=== PATIENT | male | born 1960 | race Caucasian/White ===

== ENCOUNTER 2018-10-12 05:55 | Emergency (ER) | payer OTHER, MEDICAID ==
[2018-10-12 05:56] VITALS: BMI 28.5
[2018-10-12] MEDS ORDERED: Sodium Chloride 0.9% 1,000 ML IV STA (07:16)
--- NOTE | 2018-10-12 07:25 | ED PDOC ---
HPI: Influenza Time Seen by Provider: 10/12/18 07:07 Chief Complaint: Flu-like Symptoms Chief Complaint (Provider): Flu-like Symptoms History Per: Patient Exam Limitations: no limitations Onset/Duration Of Symptoms: Days (x3) Additional complaint(s):: 58 year old male presents to ED with complaints of flu-like symptoms including subjective fever, chills, generalized bodyaches, sore throat, dry cough, and headache for 3 days. Patient has been taking Tylenol with minimal relief. Last dose was at 0400 earlier today. Of note, patient has Hx of +HIV with undetectable viral load and unknown CD4 count. PCP: none provided Past Medical History Reviewed: Historical Data, Nursing Documentation, Vital Signs Vital Signs: Last Vital Signs Temp 99.3 F 10/12/18 06:22 Pulse 104 H 10/12/18 06:22 Resp 18 10/12/18 06:22 BP 154/83 H 10/12/18 06:22 Pulse Ox 97 10/12/18 06:22 - Medical History PMH: Anxiety, HIV, HTN, Hypercholesterolemia Denies: Chronic Kidney Disease - Family History Family History: States: Unknown Family Hx - Social History Current smoker - smoking cessation education provided: Yes Alcohol: Occasional Drugs: Denies - Home Medications Home Medications: Ambulatory Orders Medication Instructions Recorded Atorvastatin [Lipitor] 10 mg PO DAILY 04/26/14 Clonazepam [Klonopin] 2 mg PO HS 04/26/14 Darunavir [Prezista] 800 mg PO DAILY 04/26/14 Dolutegravir Sodium [Tivicay] 50 mg PO DAILY 04/26/14 Enalapril Maleate [Vasotec] 10 mg PO DAILY 04/26/14 [id number] Ethyl Esters [Lovaza] 2 gm PO BID 04/26/14 Ritonavir [Norvir] 100 mg PO DAILY 04/26/14 buPROPion SR [Wellbutrin SR 150 MG] 150 mg PO BID 04/26/14 hydroCHLOROthiazide [Microzide] 12.5 mg PO DAILY 04/26/14 Naproxen [Naprosyn] 500 mg PO BID PRN #15 tablet 10/12/18 Oseltamivir Phosphate [Tamiflu] 75 mg PO BID #9 capsule 10/12/18 - Allergies Allergies/Adverse Reactions: Allergies Allergy/AdvReac Type Severity Reaction Status Date / Time No Known Allergies Allergy Verified 04/26/14 07:56 Review of Systems ROS Statement: Except As Marked, All Systems Reviewed And Found Negative Constitutional: Positive for: Fever (subjective), Chills, Other (general bodyaches) ENT: Positive for: Throat Pain Respiratory: Positive for: Cough (dry) Neurological: Positive for: Headache Physical Exam - Reviewed Nursing Documentation Reviewed: Yes Vital Signs Reviewed: Yes - Physical Exam Appears: Positive for: Non-toxic, No Acute Distress Head Exam: Positive for: ATRAUMATIC, NORMAL INSPECTION, NORMOCEPHALIC Skin: Positive for: Normal Color Eye Exam: Positive for: Normal appearance, EOMI, PERRL ENT: Positive for: Normal ENT Inspection, TM Is/Are (clear bilaterally). Negative for: Pharyngeal Erythema, Tonsillar Swelling Neck: Positive for: Normal, Supple Cardiovascular/Chest: Positive for: Regular Rate, Rhythm, Chest Non Tender Respiratory: Positive for: Normal Breath Sounds. Negative for: Respiratory Distress Gastrointestinal/Abdominal: Positive for: Normal Exam Extremity: Positive for: Normal ROM (upper/lower) Neurologic/Psych: Positive for: Alert, Oriented. Negative for: Motor/Sensory Deficits Medical Decision Making Medical Decision Making: Time: 715 Initial Plan: * EKG * Labs * CXR * IV fluids * Toradol 15mg IV * Influenza AB * Rapid strep Time: 736 --EKG: NSR at [address] changes. Accession No. : [id number] Patient Name / ID : DANIA Still / [id number] Exam Date : 10/12/2018 07:09:37 ( Approved ) Study Comment : Sex / Age : M / 58Y Creator : Daryl Martinez MD Dictator : Daryl Martinez MD Utility Tech : Glassworker : Daryl Martinez MD Approver2 : Report Date : 10/12/2018 15:13:11 My Comment : Date of service: 10/12/2018 HISTORY: Cough COMPARISON: No prior. TECHNIQUE: Chest PA and lateral FINDINGS: LUNGS: Minor bibasilar atelectasis.. PLEURA: No significant pleural effusion identified. No pneumothorax apparent. CARDIOVASCULAR: Minimal aortic atherosclerotic calcification suspected. Aorta ectatic and uncoiled. Normal cardiac size. No pulmonary vascular congestion. OSSEOUS STRUCTURES: Minor multilevel degenerative spondylosis of the thoracic spine.. VISUALIZED UPPER ABDOMEN: Normal. OTHER FINDINGS: None. IMPRESSION: Mild bibasilar atelectasis. Time: 0830 --Labs reviewed: Negative for strep and influenza. Scribe Attestation: Documented by Genoveva Todd, acting as a scribe for Roselyn Ta MD. Provider Scribe Attestation: All medical record entries made by the Scribe were at my direction and personally dictated by me. I have reviewed the chart and agree that the record accurately reflects my personal performance of the history, physical exam, medical decision making, and the department course for this patient. I have also personally directed, reviewed, and agree with the discharge instructions and disposition. - Laboratory Results Result Diagrams: 10/12/18 07:40 10/12/18 07:40 - ECG O2 Sat by Pulse Oximetry: 97 (RA) Pulse Ox Interpretation: Normal Disposition - Clinical Impression Clinical Impression: Influenza-like symptoms - Disposition Referrals: Eran Florence MD [Staff Provider] - Disposition: Routine/Home Disposition Time: 12:00 Condition: IMPROVED Prescriptions: Naproxen [Naprosyn] 500 mg PO BID PRN #15 tablet PRN Reason: Pain, Moderate (4-7) Oseltamivir Phosphate [Tamiflu] 75 mg PO BID #9 capsule Instructions: Viral Syndrome (DC) Forms: [employer] (Spanish), [facility] ED School/Work Excuse
[2018-10-12 07:48] LABS: BASO % 0.2 % (0.0-2.0); EOS % 0.3 % (0.0-4.0); HEMOGLOBIN 15.5 g/dL (12.0-18.0); LYMPH # 1.1 K/uL (1.0-4.3); LYMPH % 10.1 % (20.0-40.0); MEAN CELL VOLUME 93.3 fl (80.0-94.0); MEAN CORPUSCULAR HEMOGLOBIN 30.8 pg (27.0-31.0); MEAN CORPUSCULAR HGB CONC 33.1 g/dL (33.0-37.0); MEAN PLATELET VOLUME 7.4 fl (7.2-11.7); MONO # 1.1 K/uL (0.0-0.8); MONO % 10.4 % (0.0-10.0); NEUT # 8.5 K/uL (1.8-7.0); RBC 5.04 Mil/uL (4.40-5.90); RED CELL DISTRIBUTION WIDTH 12.5 % (11.5-14.5); WHITE BLOOD COUNT 10.7 K/uL (4.8-10.8)
[2018-10-12 07:59] LABS: ALB/GLOB RATIO 1.4 (1.0-2.1); ALBUMIN 4.4 g/dL (3.5-5.0); CALCIUM 9.1 mg/dL (8.4-10.2)
[2018-10-12 12:11] VITALS: BP 135/80; PULSE 89; RESP 18; TEMP 99.1
--- NOTE | 2018-10-12 15:16 | RAD ---
Date of service: 10/12/2018 HISTORY: Cough COMPARISON: No prior. TECHNIQUE: Chest PA and lateral FINDINGS: LUNGS: Minor bibasilar atelectasis.. PLEURA: No significant pleural effusion identified. No pneumothorax apparent. CARDIOVASCULAR: Minimal aortic atherosclerotic calcification suspected. Aorta ectatic and uncoiled. Normal cardiac size. No pulmonary vascular congestion. OSSEOUS STRUCTURES: Minor multilevel degenerative spondylosis of the thoracic spine.. VISUALIZED UPPER ABDOMEN: Normal. OTHER FINDINGS: None. IMPRESSION: Mild bibasilar atelectasis.
--- NOTE | 2018-10-12 19:02 | CARD ---
APPROVED REPORT Date of service: 10/12/2018 EKG Measurement Heart [id number] <Conclusion> Normal sinus rhythm Left axis deviation Abnormal ECG
[2018-10-13 22:30] VITALS: O2SAT 97
== END 2018-10-12 12:12 | disposition home or self-care (01) ==
LOC: H.ER 05:55
DX: J11.1 Influenza due to unidentified influenza virus with other respiratory manifestations (principal)
CPT/HCPCS: 71046; 80053; 85025; 87070; 87430; 87804; 93005; 96360; 99284; J1885; J7030